=== PATIENT | female | born 1945 | race Hispanic/Latino ===

== ENCOUNTER 2023-01-19 08:25 | Observation (INO) | payer OTHER ==
[2023-01-14 12:54] LABS: BASOPHILS # (AUTO) 0.02 K/uL (0.00-0.20); BASOPHILS % (AUTO) 0.4 % (0.0-5.0); EOSINOPHILS # (AUTO) 0.13 K/uL (0.00-0.70); EOSINOPHILS % (AUTO) 2.6 % (0.0-8.0); HEMATOCRIT 38.6 % (36-48); IMMATURE GRANULOCYTE ABSOLUTE 0.01 K/uL (0-1); LYMPHOCYTES # (AUTO) 1.5 K/uL (1.0-4.8); MEAN CORPUSCULAR HEMOGLOBIN 30.5 pg (27.0-33.0); MEAN CORPUSCULAR HGB CONC 33.2 g/dL (32.0-36.0); MEAN CORPUSCULAR VOLUME 91.9 fL (79-99); MONOCYTES # (AUTO) 0.4 K/uL (0.1-1.0); MONOCYTES % (AUTO) 7.9 % (3.0-13.0); NEUTROPHILS # (AUTO) 2.8 K/uL (1.8-7.7); NEUTROPHILS % (AUTO) 57.9 % (40.0-77.0); PLATELET COUNT (AUTO) 162 K/uL (130-400); RED CELL DISTRIBUTION WIDTH 13.3 % (11.0-15.5); WHITE BLOOD COUNT (AUTO) 4.9 K/uL (4.8-10.8)
[2023-01-14 13:07] LABS: INR 0.96 (0.85-1.15); PROTHROMBIN TIME 11.2 SEC (9.6-11.6)
[2023-01-14 13:22] LABS: CREATININE 0.7 mg/dL (0.5-1.5); POTASSIUM 4.5 mmol/L (3.5-5.1)
[2023-01-14 14:40] VITALS: BP 155/78; PULSE 56; RESP 12
[2023-01-19] VITALS (26 sets, daily range): BP systolic 112–153; BP diastolic 59–83; PULSE 52–77; RESP 10–18; O2SAT 99
[~2023-01-19] VITALS: Ht 139.7 cm; Wt 66.8 kg
[~2023-01-19 08:25] MED LIST: BIMA2.5D4 OU; CHOL500050 PO; DONE10TA43 PO; LOSA25TA41 PO; MEMA5TAB42 PO; ROSU5TAB12 PO; SERT-439 PO
[2023-01-19] MEDS ORDERED: LACTATED RINGERS 1000ML 1,000 ML IV ONE (08:30)
[2023-01-19] MEDS ORDERED: CLINDAMYCIN IVPB 600MG/50ML 50 ML IV ONE (08:30)
[2023-01-19] MEDS: DONEPEZIL HCL 5 MG TAB PO SCH (09:00)
[2023-01-19] MEDS ORDERED: MORPHINE 4 MG SYG IVP PRN (09:00)
[2023-01-19] MEDS ORDERED: DONEPEZIL HCL PO SCH (09:00)
[2023-01-19] MEDS: ASPIRIN 81 MG EC TAB PO SCH ×2 (09:00→19:48)
[2023-01-19] MEDS ORDERED: POTASSIUM CHLORIDE 20MEQ/100ML 100 ML IV PRN (09:00)
[2023-01-19] MEDS ORDERED: KCL 20 MEQ ERTAB PO PRN (09:00)
[2023-01-19] MEDS: FAMOTIDINE 20MG TAB PO SCH ×2 (09:00→19:47)
[2023-01-19] MEDS ORDERED: POTASSIUM CHLORIDE 10% ELIXIR 20 MEQ/15 ML UDCUP PO PRN (09:00)
[2023-01-19] MEDS: MEMANTINE HCL 5 MG TABLET PO SCH ×2 (09:00→19:54)
[2023-01-19] MEDS ORDERED: HYDROCODONE/ACETAMINOPHEN 5/325 MG TAB PO PRN (09:00)
[2023-01-19] MEDS: POLYETHYLENE GLYCOL 3350 17 GM POWD.PACK PO SCH (09:00)
[2023-01-19] MEDS: LOSARTAN 25 MG TABLET PO SCH (09:00)
[2023-01-19] MEDS: SERTRALINE HCL 50 MG TABLET PO SCH ×2 (09:00→19:49)
[2023-01-19] MEDS ORDERED: ONDANSETRON 4MG INJ IVP PRN (09:00)
[2023-01-19] MEDS ORDERED: ONDANSETRON 4MG INJ ONE (09:09)
[2023-01-19] MEDS ORDERED: PROPOFOL 10 MG/ML 20ML VIAL IV ONE (09:09)
[2023-01-19] MEDS ORDERED: DEXAMETHASONE SOD PHOSPHATE 10MG/ML 1ML VIAL ONE ×2 (09:09→09:17)
[2023-01-19] MEDS ORDERED: ROCURONIUM 10MG/1ML SYR 10 MG/ML ML ONE (09:09)
[2023-01-19] MEDS ORDERED: LIDOCAINE PF 100MG/5ML (2%) SYRINGE 5ML ONE (09:09)
[2023-01-19] MEDS ORDERED: FENTANYL CITRATE PF 50 MCG/1 ML 2ML VIAL ONE ×2 (09:10→11:33)
[2023-01-19] MEDS ORDERED: ROPIVACAINE 0.5% 5MG/ML 30ML IJ ONE (09:15)
[2023-01-19] MEDS ORDERED: EPHEDRINE SULFATE 50 MG/ML AMPULE ONE (10:22)
[2023-01-19] MEDS ORDERED: TRANEXAMIC ACID 1000MG/10ML ONE (10:29)
[2023-01-19] MEDS ORDERED: GLYCOPYRROLATE 1 MG/5 ML SYRINGE ONE (10:33)
[2023-01-19] MEDS ORDERED: NEOSTIGMINE 5MG/5ML SYR IV ONE (11:51)
[2023-01-19] MEDS: TRAMADOL HCL 50 MG TABLET PO SCH ×3 (12:00→23:31)
[2023-01-19] MEDS ORDERED: KETOROLAC 30MG VIAL (30MG/ML) ONE (12:58)
[2023-01-19] MEDS ORDERED: MEPERIDINE-PF 25 MG/ML SYG ONE (12:58)
[2023-01-19] MEDS: ACETAMINOPHEN 1,000 MG/100 ML VIAL IV SCH ×3 (13:21→19:50)
[2023-01-19] MEDS ORDERED: CEFAZOLIN SODIUM 1 GM VIAL IVPB SCH (14:00)
[2023-01-19] MEDS: IBUPROFEN 800MG + NS 250ML IV SCH ×2 (14:27→19:50)
[2023-01-19] MEDS: 0.9%NACL 1000ML 1,000 ML IV SCH ×2 (14:34→18:48)
[2023-01-19] MEDS: CLINDAMYCIN IVPB 600MG/50ML 50 ML IV SCH (19:53)
[2023-01-20] VITALS (7 sets, daily range): BP systolic 97–157; BP diastolic 53–79; PULSE 49–58; RESP 16–20; O2SAT 97
[2023-01-20] MEDS: 0.9%NACL 1000ML 1,000 ML IV SCH (04:06)
[2023-01-20] MEDS: IBUPROFEN 800MG + NS 250ML IV SCH (04:06)
[2023-01-20 04:33] LABS: MEAN CORPUSCULAR HGB CONC 34.2 g/dL (32.0-36.0); MEAN CORPUSCULAR VOLUME 90.4 fL (79-99); RED BLOOD CELL COUNT(AUTO) 3.65 MIL/uL (4.00-5.50); RED CELL DISTRIBUTION WIDTH 13.2 % (11.0-15.5); WHITE BLOOD COUNT (AUTO) 8.6 K/uL (4.8-10.8)
[2023-01-20 04:41] LABS: CREATININE 0.7 mg/dL (0.5-1.5); POTASSIUM 3.9 mmol/L (3.5-5.1)
[2023-01-20] MEDS: TRAMADOL HCL 50 MG TABLET PO SCH ×2 (06:16→11:18)
[2023-01-20] MEDS: POLYETHYLENE GLYCOL 3350 17 GM POWD.PACK PO SCH (08:23)
[2023-01-20] MEDS: DONEPEZIL HCL 5 MG TAB PO SCH (08:24)
[2023-01-20] MEDS: SERTRALINE HCL 50 MG TABLET PO SCH ×2 (08:25→19:29)
[2023-01-20] MEDS: FAMOTIDINE 20MG TAB PO SCH ×2 (08:25→19:29)
[2023-01-20] MEDS: LOSARTAN 25 MG TABLET PO SCH (08:25)
[2023-01-20] MEDS: ASPIRIN 81 MG EC TAB PO SCH ×2 (08:25→19:29)
[2023-01-20] MEDS: MEMANTINE HCL 5 MG TABLET PO SCH ×2 (08:26→19:29)
[2023-01-20] MEDS: HYDROCODONE/ACETAMINOPHEN 10/325 MG TAB PO PRN (08:27)
[2023-01-20] MEDS: Bimatoprost (Lumigan) 1 DROP OU SCH (08:27)
[2023-01-20] MEDS: CLINDAMYCIN IVPB 600MG/50ML 50 ML IV SCH (18:17)
[2023-01-21 04:00] VITALS: BP 139/63; PULSE 97; RESP 20
[2023-01-21] MEDS: HYDROCODONE/ACETAMINOPHEN 10/325 MG TAB PO PRN ×3 (05:30→15:01)
[2023-01-21 08:00] VITALS: BP 116/56; PULSE 57; RESP 18; O2SAT 97
[2023-01-21] MEDS: Bimatoprost (Lumigan) 1 DROP OU SCH (09:00)
[2023-01-21] MEDS: MEMANTINE HCL 5 MG TABLET PO SCH (09:39)
[2023-01-21] MEDS: DONEPEZIL HCL 5 MG TAB PO SCH (09:39)
[2023-01-21] MEDS: LOSARTAN 25 MG TABLET PO SCH (09:39)
[2023-01-21] MEDS: FAMOTIDINE 20MG TAB PO SCH (09:39)
[2023-01-21] MEDS: POLYETHYLENE GLYCOL 3350 17 GM POWD.PACK PO SCH (09:39)
[2023-01-21] MEDS: ASPIRIN 81 MG EC TAB PO SCH (09:39)
[2023-01-21] MEDS: SERTRALINE HCL 50 MG TABLET PO SCH (09:44)
[2023-01-21 12:00] VITALS: BP 112/54; PULSE 59; RESP 18
[2023-01-22] MEDS ORDERED: BISACODYL 10 MG SUPP.RECT RC PRN (09:00)
== END 2023-01-21 16:40 | disposition home or self-care (01) ==
LOC: DAH 08:25 → DAHIP 08:26 → 4AH 14:10
PROVIDERS: ADMIT Orthopaedic Surgery; ATTEND Orthopaedic Surgery
DX: M17.12 Unilateral primary osteoarthritis, left knee (principal); M21.062 Valgus deformity, not elsewhere classified, left knee; S83.012A Lateral subluxation of left patella, initial encounter; D62 Acute posthemorrhagic anemia; F03.90 Unspecified dementia, unspecified severity, without behavioral disturbance, psychotic disturbance, mood disturbance, and anxiety; E78.5 Hyperlipidemia, unspecified; R42 Dizziness and giddiness; X58.XXXA Exposure to other specified factors, initial encounter; Y92.89 Other specified places as the place of occurrence of the external cause; Y93.89 Activity, other specified; Y99.8 Other external cause status
CPT/HCPCS: 80048 ×2; 85025; 85610; 85730; 36415 ×2; 87641; 96376; 96365; 96366 ×2; 96375; 96368; 27447; 97161; 97039 ×2; 85027; 97116 ×3; 97530 ×2; A6260; G0378 ×50; G0379; C1776 ×3; A4663; J7030; J7120 ×2; J3010 ×2; J3490 ×7; J1100 ×2; J2710; J2001; J2704; J2405 ×2; J2270; J1885; J2175; J2795; J1741 ×3; A6223; G0168; A4649 ×3; A6212; A4930; A5120; A4215; A4223; A4222; A4221